=== PATIENT | male | born 1930 | race Caucasian/White ===

== ENCOUNTER 2017-11-21 18:45 | Inpatient (IN) | payer MEDICARE, BC ==
[~2017-11-21] VITALS: Ht 175.3 cm; Wt 66.7 kg
[2017-11-21] MEDS ORDERED: LIPITOR80 MG PO (18:51)
[2017-11-21] MEDS ORDERED: MINITRAN TP (18:52)
[2017-11-21] MEDS ORDERED: PEPCID20 MG PO (18:52)
[2017-11-21] MEDS ORDERED: PROTONIX40 MG PO (18:52)
[2017-11-21] MEDS ORDERED: NORVASC2.5 MG PO (18:52)
[2017-11-21] MEDS ORDERED: KLOR-CON 1010 MEQ PO (18:53)
[2017-11-21] MEDS ORDERED: PLAVIX75 MG PO (18:53)
[2017-11-21] MEDS ORDERED: NITROMIST8.5 GM SL (18:53)
[2017-11-21] MEDS ORDERED: RANEXA1000 MG PO (18:54)
[2017-11-21] MEDS ORDERED: BAYER CHEWABLE81 MG PO (18:54)
[2017-11-21] MEDS ORDERED: LEVOXYL25 MCG PO (18:55)
[2017-11-21] MEDS ORDERED: ISOSORBIDE DINI30 MG PO (18:55)
[2017-11-21] MEDS ORDERED: COREG 3.1253.125 MG PO (18:55)
[2017-11-21] MEDS ORDERED: ELIQUIS5 MG PO (18:55)
[2017-11-21] MEDS ORDERED: CARAFATE1 G PO (18:56)
[2017-11-21] MEDS ORDERED: ZOLOFT100 MG PO (18:56)
[2017-11-21] MEDS ORDERED: ZYLOPRIM300 MG PO (18:56)
[2017-11-21] MEDS ORDERED: OXYGEN (18:57)
[2017-11-21] MEDS ORDERED: FUROSEMIDE20 MG PO (18:57)
[2017-11-21 20:04] LABS: CALC OSMOLALITY 280 mosm/kg (275-300); CALCIUM 8.5 mg/dL (8.5-10.1); CARBON DIOXIDE 28.5 mmol/L (21.0-32.0); CHLORIDE - SERUM 104 mmol/L (98-107); GLUCOSE 82 mg/dL (74-106); POTASSIUM - SERUM 3.9 mmol/L (3.5-5.1); SODIUM 139 mmol/L (136-145); UREA NITROGEN 24 mg/dL (7-18); eGFR NON AFRICAN AMERICAN 75 mL/min (90-120)
[2017-11-21 20:07] LABS: BASOPHILS 0.1 % (0-2); EOSINOPHILS 2.1 % (0-7); HEMATOCRIT 26.9 % (42.0-54.0); HEMOGLOBIN 8.8 g/dL (13.5-17.5); LYMPHOCYTES 26.4 % (15-50); MCH 33.3 pg (26.0-34.0); MCHC 32.7 g/dL (31.0-37.0); MCV 101.9 fL (80.0-100.0); MEAN PLATELET VOLUME 9.5 fL (7.4-10.4); MONOCYTES 8.7 % (2-11); NEUTROPHILS 60.7 % (40-80); PLATELET COUNT 187 10x3/uL (130-400); RBC 2.64 10x6/uL (4.20-6.10); RDW 15.4 % (11.5-14.5)
[2017-11-21 21:00] VITALS: BP 127/64
[2017-11-21 22:00] VITALS: BP 118/59
[2017-11-22] VITALS: BP 127/59
[2017-11-22 01:31] LABS: BASOPHILS 0.1 % (0-2); EOSINOPHILS 2.1 % (0-7); IMMATURE GRANULOCYTES 1.8 % (0-5); LYMPHOCYTES 27.4 % (15-50); MCH 32.3 pg (26.0-34.0); MCV 100.8 fL (80.0-100.0); MEAN PLATELET VOLUME 9.4 fL (7.4-10.4); MONOCYTES 9.1 % (2-11); NEUTROPHILS 59.5 % (40-80); PLATELET COUNT 167 10x3/uL (130-400); RBC 2.48 10x6/uL (4.20-6.10); RDW 15.4 % (11.5-14.5); WBC 7.2 10x3/uL (4.8-10.8)
[2017-11-22 03:04] VITALS: BP 128/68; BMI 21.7
[2017-11-22 03:59] LABS: BASOPHILS 0.3 % (0-2); EOSINOPHILS 2.4 % (0-7); HEMATOCRIT 25.2 % (42.0-54.0); HEMOGLOBIN 8.3 g/dL (13.5-17.5); IMMATURE GRANULOCYTES 2.3 % (0-5); MCH 33.2 pg (26.0-34.0); MCHC 32.9 g/dL (31.0-37.0); MCV 100.8 fL (80.0-100.0); MEAN PLATELET VOLUME 9.3 fL (7.4-10.4); MONOCYTES 8.6 % (2-11); NEUTROPHILS 60.4 % (40-80); PLATELET COUNT 160 10x3/uL (130-400); RDW 15.3 % (11.5-14.5); WBC 6.5 10x3/uL (4.8-10.8)
[2017-11-22 04:07] VITALS: BP 118/44
[2017-11-22 04:31] LABS: ALBUMIN 2.8 g/dL (3.4-5.0); ALKALINE PHOSPHATASE 78 U/L (46-116); ALT (SGPT) 21 U/L (10-68); BILIRUBIN - TOTAL 0.27 mg/dL (0.2-1.3); CALC OSMOLALITY 283 mosm/kg (275-300); CALCIUM 8.1 mg/dL (8.5-10.1); CARBON DIOXIDE 29.5 mmol/L (21.0-32.0); CHLORIDE - SERUM 108 mmol/L (98-107); GLUCOSE 85 mg/dL (74-106); MAGNESIUM - SERUM 2.1 mg/dL (1.8-2.4); PHOSPHOROUS 3.1 mg/dL (2.5-4.9); POTASSIUM - SERUM 4.3 mmol/L (3.5-5.1); PROTEIN - SERUM 5.9 g/dL (6.4-8.2); SODIUM 142 mmol/L (136-145); UREA NITROGEN 19 mg/dL (7-18); eGFR NON AFRICAN AMERICAN 75 mL/min (90-120)
[2017-11-22 08:10] VITALS: BP 124/57
[2017-11-22 12:27] VITALS: Ht 175.3 cm; Wt 66.7 kg
[2017-11-22 12:34] VITALS: BP 119/55
[2017-11-22 13:52] LABS: BASOPHILS 0.2 % (0-2); EOSINOPHILS 2.2 % (0-7); HEMATOCRIT 26.9 % (42.0-54.0); HEMOGLOBIN 8.7 g/dL (13.5-17.5); LYMPHOCYTES 22.4 % (15-50); MCH 33.1 pg (26.0-34.0); MCHC 32.3 g/dL (31.0-37.0); MCV 102.3 fL (80.0-100.0); MEAN PLATELET VOLUME 9.2 fL (7.4-10.4); MONOCYTES 8.3 % (2-11); NEUTROPHILS 64.9 % (40-80); PLATELET COUNT 153 10x3/uL (130-400); RBC 2.63 10x6/uL (4.20-6.10); RDW 15.7 % (11.5-14.5); WBC 5.1 10x3/uL (4.8-10.8)
[2017-11-22 14:25] LABS: % SATURATION 10 % (15-55); IRON 34 ug/dl (35-150); TOTAL IRON BIND CAPACITY 328 ug/dl (260-445); UNSAT IRON BIND CAPACITY 294 ug/dl (150-375)
[2017-11-22 14:41] LABS: FERRITIN 24 ng/mL (3-244); LDH 151 U/L (85-227)
[2017-11-22] MEDS ORDERED: PROTONIX40 MG PO (16:34)
[2017-11-22] MEDS ORDERED: PEPCID20 MG PO (16:34)
[2017-11-22] MEDS ORDERED: FOLBIC RF TABL1 EACH PO (16:34)
[2017-11-22] MEDS ORDERED: CARAFATE1 G/10 ML PO (16:37)
[2017-11-23 08:15] LABS: FOLATE (FOLIC ACID) - SERUM 12.7 ng/mL (>3.0)
[2017-11-25 13:12] LABS: HAPTOGLOBIN 157 mg/dL (34-200); TRANSFERRIN 253 mg/dL (200-370)
== END 2017-11-22 18:34 | disposition home or self-care (01) | DRG 378 ==
LOC: D.ER 18:45 → EDBD 18:45 → D.EDHOLD 20:11 → D.MS 20:11
PROVIDERS: Family Medicine; Internal Medicine Gastroenterology
PROC: 0DJ08ZZ Inspection of Upper Intestinal Tract, Via Natural or Artificial Opening Endoscopic (ICD-10-PCS; principal; 2017-11-22 13:00)
DX: K92.2 Gastrointestinal hemorrhage, unspecified (principal); D62 Acute posthemorrhagic anemia; Z79.01 Long term (current) use of anticoagulants; I10 Essential (primary) hypertension; E78.5 Hyperlipidemia, unspecified; J44.9 Chronic obstructive pulmonary disease, unspecified; K21.0 Gastro-esophageal reflux disease with esophagitis; K29.80 Duodenitis without bleeding